=== PATIENT | female | born 1995 | race Caucasian/White ===

== ENCOUNTER 2016-10-25 16:41 | Emergency (ER) | payer OTHER ==
[~2016-10-25] VITALS: Ht 167.6 cm; Wt 71.2 kg
[2016-10-25 16:49] VITALS: BP 137/81
[2016-10-25] MEDS ORDERED: NACL 0.9% 1,000 ML IV ONE (17:10)
[2016-10-25 17:20] LABS: BASOPHILS # (AUTO) 0.1 K/uL (0.00-0.22); EOSINOPHILS # (AUTO) 0.2 K/uL (0-0.4); EOSINOPHILS % (AUTO) 1.4 % (0.0-4.0); HEMATOCRIT 39.7 % (36-48); HEMOGLOBIN 12.9 g/dL (12.0-16.0); LYMPHOCYTES # (AUTO) 1.1 K/uL (2.5-16.5); LYMPHOCYTES % (AUTO) 7.6 % (20.5-51.1); MEAN CORPUSCULAR HEMOGLOBIN 27 pg (27-31); MEAN CORPUSCULAR HGB CONC 32 g/dL (33-37); MEAN CORPUSCULAR VOLUME 84 fL (80-94); MONOCYTES # (AUTO) 0.4 K/uL (0.8-1.0); MONOCYTES % (AUTO) 2.7 % (1.7-9.3); NEUTROPHILS % (AUTO) 87.3 % (42.2-75.2); PLATELET COUNT (AUTO) 341 K/uL (140-450); RED BLOOD CELL COUNT(AUTO) 4.75 MIL/uL (4.20-5.40); RED CELL DISTRIBUTION WIDTH 12.9 % (11.6-13.7); WHITE BLOOD COUNT (AUTO) 13.8 K/uL (4.8-10.8)
[2016-10-25 17:33] LABS: ANION GAP 11.7 (8-16); CALCIUM 8.8 mg/dL (8.5-10.1); CARBON DIOXIDE 28.8 mmol/L (21-32); CREATININE 0.8 mg/dL (0.6-1.3); POTASSIUM 3.5 mmol/L (3.5-5.1)
[2016-10-25 17:38] LABS: MAGNESIUM 1.8 mg/dL (1.8-2.4); TOTAL BILIRUBIN 0.4 mg/dL (0.0-1.0); TOTAL PROTEIN, SERUM 7.6 g/dL (6.4-8.2)
[2016-10-25 17:47] LABS: THYROID STIMULATING HORMONE 0.56 uIU/mL (0.34-3.76)
--- NOTE | 2016-10-25 18:05 | NUR ---
DR ROSARIO AT BEDSIDE FOR EXAM
--- NOTE | 2016-10-25 18:12 | NUR ---
PT HERE WITH C/O DIZZINESS WITH HEADCAHE X 1 WWEKK, WORSENING TODAY. DENIES ANY N/V/D. DENIES ANY FEVERS/CHILLS. VSS.
--- NOTE | 2016-10-25 18:23 | NUR ---
IV FLUIDS INFUSING WELL TO LEFT AC. PT REPORTS FEELING BETTER VSS.
== END 2016-10-25 19:00 | disposition home or self-care (01) ==
LOC: MED 16:41
DX: R55 Syncope and collapse (principal); R11.10 Vomiting, unspecified; R10.9 Unspecified abdominal pain
CPT/HCPCS: 36415; 80053; 81002; 81025; 83690; 83735; 84443; 85025; 93005; 96360; 99285; J7030